=== PATIENT | female | born 1960 | race Caucasian/White ===

== ENCOUNTER 2020-11-29 12:29 | Emergency (ER) | payer MEDICARE, MEDICAID ==
[2020-11-29] MEDS ORDERED: Fluorescein Opthalmic Strip ONE (12:49)
[2020-11-29] MEDS ORDERED: Tetracaine 0.5% PF 4 ML BOT ONE (12:49)
== END 2020-11-29 13:13 | disposition home or self-care (01) ==
LOC: BURERS 12:29
DX: H10.11 Acute atopic conjunctivitis, right eye (principal); I25.10 Atherosclerotic heart disease of native coronary artery without angina pectoris; E11.9 Type 2 diabetes mellitus without complications; I10 Essential (primary) hypertension
CPT/HCPCS: 99283

== ENCOUNTER 2020-12-13 13:47 | Emergency (ER) | payer MEDICARE, MEDICAID ==
[2020-12-13] MEDS ORDERED: Ibuprofen 200 MG TAB ONE (13:59)
[2020-12-13 15:02] LABS: #Basophils 0.1 thou/uL (0.0-0.2); #Eosinphils 0.1 thou/uL (0.0-0.7); #Monocytes 0.7 thou/uL (0.11-0.59); #Neutrophils 7.1 thou/uL (1.40-6.50); %Basophils 0.7 % (0.0-1.0); %Eosinophils 1.5 % (0.0-10.0); %Lymphocytes 10.8 % (21.0-51.0); %Monocytes 7.4 % (0.0-10.0); %Neutrophils 79.5 % (42.0-75.0); Hemoglobin 15.3 g/dL (12.0-16.0); Mean Corpuscular HGB CONC 32.1 g/dL (32.0-36.0); Mean Corpuscular Hemoglobin 29.8 pg (27.0-31.0); Mean Corpuscular Volume 92.8 fL (78.0-98.0); Mean Platelet Volume 7.9 fL (7.4-10.4); Platelet Count 236 thou/uL (130-400); RBC Distribution Width 12.5 % (11.5-14.5); Red Blood Cell (RBC) Count 5.12 mill/uL (4.20-5.40); White Blood Cell (WBC) Count 8.9 thou/uL (4.8-10.8)
[2020-12-13] MEDS ORDERED: cefTRIAXone\\ROCEPHIN 1 GM VIAL ONE (15:12)
[2020-12-13 15:18] LABS: ALT (SGPT) 26 U/L (8-55); AST (SGOT) 20 U/L (5-34); Albumin 3.9 g/dL (3.5-5.0); Alkaline Phosphatase 137 U/L (40-110); Anion Gap 17 mmol/L (10-20); BUN (Urea Nitrogen) 12 mg/dL (9.8-20.1); Bilirubin, Total 0.8 mg/dL (0.2-1.2); Calc. Creatinine Clearance 0 mL/min (70-130); Calcium 9.3 mg/dL (7.8-10.44); Carbon Dioxide 26 mmol/L (22-29); Chloride 102 mmol/L (98-107); Globulin 3.6 g/dL (2.4-3.5); Glucose 122 mg/dL (70-105); Potassium 4.3 mmol/L (3.5-5.1); Protein, Total 7.5 g/dL (6.0-8.3); Sodium 141 mmol/L (136-145)
[2020-12-13] MEDS ORDERED: Dexamethasone 10 MG/ML VIAL ONE (17:10)
[2020-12-13] MEDS ORDERED: Enoxaparin Sodium 40 MG/0.4 ML SYRINGE ONE (17:10)
[2020-12-13 17:41] LABS: SARS-CoV-2 NAA Rapid Test DETECTED (NotDetected)
== END 2020-12-13 18:00 | disposition short-term general hospital (02) ==
LOC: BURERS 13:47
DX: U07.1 COVID-19 (principal); I25.10 Atherosclerotic heart disease of native coronary artery without angina pectoris; E11.9 Type 2 diabetes mellitus without complications; I10 Essential (primary) hypertension
CPT/HCPCS: 71045; 80053; 83605; 83880; 84484; 85025; 93005; U0002; 36415; 96365; 96375; J0696; J1100; J1650; J7620

== ENCOUNTER 2021-01-08 12:10 | Emergency (ER) | payer MEDICARE, MEDICAID | END 2021-01-08 16:00 | disposition home or self-care (01) | LOC: BURERS 12:10 | DX: Z00.00 Encounter for general adult medical examination without abnormal findings (principal); J45.909 Unspecified asthma, uncomplicated | CPT/HCPCS: 99283 ==

== ENCOUNTER 2021-09-11 08:26 | Emergency (ER) | payer MEDICARE, MEDICAID ==
[2021-09-11] MEDS ORDERED: HYDROcodone/Acetaminophen 5/325 mg Tablet ONE (09:15)
[2021-09-11] MEDS ORDERED: Clindamycin 150 MG CAP ONE (09:16)
[2021-09-11] MEDS ORDERED: Ciprofloxacin 500 MG TAB ONE (09:16)
== END 2021-09-11 09:31 | disposition home or self-care (01) ==
LOC: BURERS 08:26
DX: H60.12 Cellulitis of left external ear (principal); E11.9 Type 2 diabetes mellitus without complications; I10 Essential (primary) hypertension; E78.5 Hyperlipidemia, unspecified
CPT/HCPCS: 99282

== ENCOUNTER 2021-09-12 11:10 | Emergency (ER) | payer MEDICARE, MEDICAID ==
[2021-09-12] MEDS ORDERED: Lorazepam 2 MG/ML VIAL ONE (11:28)
[2021-09-12] MEDS ORDERED: Ondansetron PF 4 MG/2 ML Vial ONE (11:28)
[2021-09-12 11:53] LABS: #Basophils 0.1 thou/uL (0.0-0.2); #Eosinphils 0.1 thou/uL (0.0-0.7); #Lymphocytes 1.5 thou/uL (1.20-3.40); #Monocytes 0.5 thou/uL (0.11-0.59); #Neutrophils 5.5 thou/uL (1.40-6.50); %Eosinophils 0.7 % (0.0-10.0); %Lymphocytes 19.1 % (21.0-51.0); %Neutrophils 72.1 % (42.0-75.0); ALT (SGPT) 31 U/L (8-55); AST (SGOT) 34 U/L (5-34); Alkaline Phosphatase 195 U/L (40-110); Anion Gap 21 mmol/L (10-20); BUN (Urea Nitrogen) 16 mg/dL (9.8-20.1); Bilirubin, Total 0.7 mg/dL (0.2-1.2); Calc. Creatinine Clearance 0 mL/min (70-130); Calcium 9.6 mg/dL (7.8-10.44); Carbon Dioxide 24 mmol/L (22-29); Chloride 97 mmol/L (98-107); Globulin 3.6 g/dL (2.4-3.5); Glucose 204 mg/dL (70-105); Hemoglobin 16.6 g/dL (12.0-16.0); Lipase 24 U/L (8-78); Mean Corpuscular HGB CONC 32.1 g/dL (32.0-36.0); Mean Corpuscular Hemoglobin 29.2 pg (27.0-31.0); Mean Platelet Volume 9.3 fL (7.4-10.4); Platelet Count 151 thou/uL (130-400); Potassium 4.5 mmol/L (3.5-5.1); Protein, Total 7.6 g/dL (6.0-8.3); RBC Distribution Width 12.1 % (11.5-14.5); Red Blood Cell (RBC) Count 5.68 mill/uL (4.20-5.40); Sodium 137 mmol/L (136-145); White Blood Cell (WBC) Count 7.6 thou/uL (4.8-10.8)
[2021-09-12 11:55] LABS: Large Platelets SLIGHT
[2021-09-12 11:56] LABS: MDiff Complete? YES
[2021-09-12 12:01] LABS: PTT 29.3 sec (22.9-36.1); Prothrombin Time 12.8 sec (12.0-14.7)
[2021-09-12] MEDS ORDERED: Enoxaparin Sodium 100 MG/ML SYRINGE ONE (12:12)
[2021-09-12] MEDS ORDERED: Aspirin Chewable 81 MG TAB ONE (12:12)
== END 2021-09-12 13:45 | disposition short-term general hospital (02) ==
LOC: BURERS 11:10
DX: G45.9 Transient cerebral ischemic attack, unspecified (principal); I10 Essential (primary) hypertension; R11.2 Nausea with vomiting, unspecified; R29.703 NIHSS score 3; E11.9 Type 2 diabetes mellitus without complications; E78.5 Hyperlipidemia, unspecified; Z79.84 Long term (current) use of oral hypoglycemic drugs; Z79.899 Other long term (current) drug therapy
CPT/HCPCS: 36416; 70450; 71045; 80053; 83690; 84484; 85025; 85610; 85730; 93005; 94760; 96360; 96361; 96372; 96374; 96375; J1650; J2060; J2405